=== PATIENT | female | born 1995 | race Two or more races ===

== ENCOUNTER 2022-09-26 15:21 | Emergency (ER) | payer OTHER ==
[~2022-09-26] VITALS: Ht 165.1 cm; Wt 65.8 kg
[2022-09-26] MEDS ORDERED: DUI500 PO (16:29)
== END 2022-09-26 16:51 | disposition home or self-care (01) ==
LOC: ER 15:21
DX: S80.262A Insect bite (nonvenomous), left knee, initial encounter (principal); S80.261A Insect bite (nonvenomous), right knee, initial encounter; W57.XXXA Bitten or stung by nonvenomous insect and other nonvenomous arthropods, initial encounter; Y93.89 Activity, other specified; Y92.89 Other specified places as the place of occurrence of the external cause